=== PATIENT | female | born 1975 ===

== ENCOUNTER 2016-07-03 16:11 | Emergency (ER) | payer BC ==
[2016-07-03 16:36] VITALS: BP 110/56; PULSE 82; RESP 18; TEMP 98; O2SAT 99
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
--- NOTE | 2016-07-03 17:18 | RAD ---
PROCEDURE: Left Foot Radiographs. HISTORY: foot injury COMPARISON: None. FINDINGS: BONES: There is no acute fracture or bone destruction. Bone alignment and mineralization are normal. JOINTS: Normal. SOFT TISSUES: Normal. OTHER FINDINGS: None. IMPRESSION: No acute fracture or dislocation.
== END 2016-07-03 17:59 | disposition home or self-care (01) ==
LOC: H.ER 16:11
DX: S99.922A Unspecified injury of left foot, initial encounter (principal); Y92.89 Other specified places as the place of occurrence of the external cause; W22.8XXA Striking against or struck by other objects, initial encounter

== ENCOUNTER 2017-09-13 05:04 | Emergency (ER) | payer BC, OTHER ==
[2017-09-13 05:43] VITALS: TEMP 98.3
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
[2017-09-13] MEDS ORDERED: Naproxen 500 MG TAB PO STA (08:32)
[2017-09-13] MEDS ORDERED: Naproxen 500 MG TAB PO ONE (08:43)
[2017-09-13 09:00] VITALS: BP 126/66; PULSE 85; RESP 15
--- NOTE | 2017-09-13 10:18 | RAD ---
HISTORY: chest pain COMPARISON: Chest radiograph from right rib series 07/11/2014. TECHNIQUE: Chest PA and lateral FINDINGS: LUNGS: No active pulmonary disease. PLEURA: No significant pleural effusion identified. No pneumothorax apparent. CARDIOVASCULAR: Normal. OSSEOUS STRUCTURES: No significant abnormalities. VISUALIZED UPPER ABDOMEN: Normal. OTHER FINDINGS: None. IMPRESSION: No interval acute cardiopulmonary disease appreciated.
[2017-09-13 22:46] VITALS: O2SAT 100
== END 2017-09-13 08:45 | disposition home or self-care (01) ==
LOC: H.ER 05:04
DX: S09.90XA Unspecified injury of head, initial encounter (principal); Z04.3 Encounter for examination and observation following other accident; V03.90XA Pedestrian on foot injured in collision with car, pick-up truck or van, unspecified whether traffic or nontraffic accident, initial encounter; E78.5 Hyperlipidemia, unspecified

== ENCOUNTER 2018-04-25 12:43 | Emergency (ER) | payer OTHER ==
[2018-04-25 12:51] VITALS: BP 109/76; PULSE 93; RESP 20; TEMP 98.1; O2SAT 98
--- NOTE | 2018-04-25 13:18 | ED PDOC ---
Upper Extremity Pain/Injury Time Seen by Provider: 04/25/18 13:00 Chief Complaint (Nursing): Upper Extremity Problem/Injury Chief Complaint (Provider): Upper Extremity Problem/Injury History Per: Patient History/Exam Limitations: no limitations Onset/Duration Of Symptoms: Days Current Symptoms Are (Timing): Still Present Additional Complaint(s): Patient is a 42 y/o female with a PMHx of hyperlipidemia who presents to the ED for evaluation of left elbow pain for the past month. 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 Patient also states she is left handed. Patient admits the pain occasionally radiates to the rest of her arm. PCP: None Provided Past Medical History Reviewed: Historical Data, Nursing Documentation, Vital Signs Vital Signs: Last Vital Signs Temp 98.1 F 04/25/18 12:49 Pulse 93 H 04/25/18 12:49 Resp 20 04/25/18 12:49 BP 109/76 04/25/18 12:49 Pulse Ox 98 04/25/18 12:49 - Medical History PMH: Hyperlipidemia Denies: Chronic Kidney Disease - Surgical History Surgical History: No Surg Hx - Family History Family History: States: Unknown Family Hx - Home Medications Home Medications: Ambulatory Orders Medication Instructions Recorded Naproxen [Naprosyn] 500 mg PO BID #20 tab 04/27/14 Tizanidine Hydrochloride 4 mg PO Q6 PRN #20 tab 04/27/14 [Tizanidine HCl] oxyCODONE/Acetaminophen [Percocet 1 tab PO Q4H PRN #20 tab 04/27/14 5/325 mg Tab] Cyclobenzaprine HCl [Flexeril] 10 mg PO Q8 #15 tab 07/11/14 oxyCODONE/Acetaminophen [Percocet 1 ea PO Q6H PRN #15 tab 07/11/14 5/325 mg Tab] Naproxen [Naprosyn] 500 mg PO Q12H #20 tab 09/13/17 Diclofenac Potassium 50 mg PO BID #20 tablet 04/25/18 Methylprednisolone [Medrol Dose 4 mg PO ASDIR #21 mg 04/25/18 Pack (21 tabs)] - Allergies Allergies/Adverse Reactions: Allergies Allergy/AdvReac Type Severity Reaction Status Date / Time No Known Allergies Allergy Verified 04/25/18 12:48 Review of Systems ROS Statement: Except As Marked, All Systems Reviewed And Found Negative Musculoskeletal: Positive for: Arm Pain (left; centralized about elbow; radiatign to rest of arm) Physical Exam - Reviewed Nursing Documentation Reviewed: Yes Vital Signs Reviewed: Yes - Physical Exam Appears: Positive for: No Acute Distress Head Exam: Positive for: ATRAUMATIC, NORMAL INSPECTION, NORMOCEPHALIC Skin: Positive for: Normal Color Eye Exam: Positive for: EOMI, Normal appearance, PERRL Neck: Positive for: Normal Cardiovascular/Chest: Positive for: Regular Rate, Rhythm. Negative for: Murmur Respiratory: Positive for: Normal Breath Sounds. Negative for: Respiratory Distress Extremity: Positive for: Other (left elbow positive supination test). Negative for: Normal ROM (limited flexion, extension, and rotation about left elbow), Pedal Edema, Deformity Neurologic/Psych: Positive for: Alert, Oriented. Negative for: Motor/Sensory Deficits - ECG O2 Sat by Pulse Oximetry: 98 (RA) Pulse Ox Interpretation: Normal Medical Decision Making Medical Decision Making: Time: 1309 Impression: left elbow tendinitis (Tennis Elbow) Plan: Decadron Inj 10 mg IM Toradol 60 mg IM Patient advised to followup with orthopedic or PMD. Scribe Attestation: Documented by Ramy Solis, acting as a scribe for MACK Palacio. Provider Scribe Attestation: All medical record entries made by the Scribe were at my direction and personally dictated by me. I have reviewed the chart and agree that the record accurately reflects my personal performance of the history, physical exam, medical decision making, and the department course for this patient. I have also personally directed, reviewed, and agree with the discharge instructions and disposition. Disposition - Clinical Impression Clinical Impression: Tennis elbow - Patient ED Disposition Is Patient to be Admitted: No Doctor Will See Patient In The: Office Counseled Patient/Family Regarding: Diagnosis, Need For Followup, Rx Given - Disposition Referrals: [facility] [place] [Outside] [facility] [place] [Outside] Disposition: Routine/Home Disposition Time: 13:30 Condition: STABLE Prescriptions: Diclofenac Potassium 50 mg PO BID #20 tablet Methylprednisolone [Medrol Dose Pack (21 tabs)] 4 mg PO ASDIR #21 mg Instructions: Lateral Epicondylitis, Lateral Epicondylitis (DC), Elbow Tendinopathy (Tennis and Golf Elbow) Forms: [employer] (Macedonian), [facility] ED School/Work Excuse
== END 2018-04-25 14:05 | disposition home or self-care (01) ==
LOC: H.ER 12:43
DX: M77.12 Lateral epicondylitis, left elbow (principal); E78.5 Hyperlipidemia, unspecified
CPT/HCPCS: 81025; 96372; 99282; J1100; J1885